=== PATIENT | male | born 1950 | race Caucasian/White ===

== ENCOUNTER 2023-12-12 12:21 | Outpatient (AMB) | payer OTHER, SELFPAY ==
[2023-12-12 12:24] VITALS: BP 160/90; PULSE 83; TEMP 36.6; O2SAT 98; BMI 47.3
--- NOTE | 2023-12-12 12:24 | AM.OFFWIN_ITS ---
Intake Vital Signs 12/12/23 12:24 Height 6 ft 6 in Weight 409 lb BMI 47.3 BP 160/90 H Blood Pressure Location Lt brachial Position Sitting Pulse 83 Pulse Source Pulse Oximeter Temp 97.8 F Temp Source Temporal Artery Scan Pulse Oximetry (%) 98 Oxygen Delivery Method Room Air Intake Visit Reasons: CONTACT [employer] LT side pain due to fall Intake Note: pt is here today for lft side due to fall started tuesday Patient Tobacco Use Status: Never used Tobacco Allergies No Known Allergies Allergy (Verified 12/12/23 12:28) Do you need a note to return to daycare/school/sports/work: No HPI HPI Comments History of Present Illness Details Patient presents to the walk-in today for sick visit Fell 2 days ago from standing, landed on his left side. Complaining of pain over the left ribs worse with deep inspiration Denies syncope, dizziness, weakness. 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 He is concerned for fractured ribs and would like an x-ray Denies shortness of breath but does report pain increased with deep inspiration Able to use his CPAP at home since the fall without difficulty Has an incentive spirometer at home when she has also been using Apply lidocaine patch with minimal improvement Denies current use of anticoagulation PFSH Social History Patient Tobacco Use Status: Never used Tobacco Review of Systems Const All systems reviewed & are unremarkable except as noted in HPI and below Physical Exam Vital Signs: Last Vital Signs Temp 97.8 F 12/12/23 12:24 Pulse 83 12/12/23 12:24 BP 160/90 H 12/12/23 12:24 Pulse Ox 98 12/12/23 12:24 Oxygen Delivery Method Room Air 12/12/23 12:24 BMI result Body Mass Index 47.3 General: awake, alert, oriented. Answers questions appropriately. Fully engaged in examination. Skin: warm, dry, intact HEENT: Normocephalic. Hearing intact. Cardiac: External chest normal in appearance. RRR Respiratory: No cough, audible wheezing or stridor. Lung sounds clear to auscultation bilaterally Abdomen: without gross distension. Soft, nontender. No guarding MS: Tenderness to palpation left lateral chest wall, below the axilla, without bruising, swelling or obvious deformity Full range of motion right upper extremity without pain increase Neurological: Oriented to person, place, time and situation. Thought process intact. No gait abnormalities appreciated. Psychiatric: Appropriate mood and affect. Good judgment and insight. Results Reviewed Results Reviewed: X-ray left ribs and chest ordered and independently reviewed: Fracture left 7th rib, no pneumothorax Assessment & Plan Assessment & Plan (1) Rib pain on left side: Code(s): R07.81 - Pleurodynia Plan X-ray ordered independently reviewed, fracture left 7th rib, no pneumothorax Continue to use incentive spirometer at home Ibuprofen 600 mg 4 times daily as needed. Patient declined prescription, will use [id number]. Follow-up with PCP or return here for any new or worsening symptoms Go to the ER for shortness of breath, chest pain, syncope, weakness, dizziness Orders: Orders XR ribs LT min 3V w CXR1V Today R07.81 - Pleurodynia Coding Level of Care Code New Pt Level 4 (34376) Diagnoses Rib pain on left side R07.81
== END 2023-12-12 14:53 | disposition home or self-care (01) ==
PROVIDERS: PCP Internal Medicine; Visit Provider Registered Nurse Emergency
DX: R07.81 Pleurodynia (principal)
CPT/HCPCS: 99204

== ENCOUNTER 2023-12-12 13:21 | Outpatient (REF) | payer OTHER, SELFPAY ==
--- NOTE | ~2023-12-12 | XR_ITS ---
EXAMINATION: XR RIBS, LEFT CLINICAL INFORMATION: Pleurodynia COMPARISON: None available. TECHNIQUE: Single view chest with 7 views of the left ribs were obtained. FINDINGS: Heart size upper limits of normal. The lungs are clear without effusions infiltrates or lung masses. Old healed fractures are noted on the right. There are new acute minimally displaced fractures involving the 4th , the 5th , and the 6th anterolateral ribs. No pneumothorax or pleural effusions. Some left basilar atelectasis is seen. XR/XR ribs LT min 3V w CXR1V IMPRESSION: Acute left-sided rib fractures as described above.
== END 2023-12-12 13:22 | disposition home or self-care (01) ==
LOC: HO.HMGCX 13:21
PROVIDERS: Visit Provider Registered Nurse Emergency
DX: R07.81 Pleurodynia (principal)
CPT/HCPCS: 71101

== ENCOUNTER 2023-12-20 13:11 | Outpatient (AMB) | payer OTHER, SELFPAY ==
[2023-12-20 13:05] VITALS: BP 130/90; PULSE 68; TEMP 36.2; O2SAT 98; BMI 48.0
--- NOTE | 2023-12-20 13:05 | MHC.OFFWIV ---
Intake Vital Signs 12/20/23 13:05 Height 6 ft 6 in Weight 415 lb BMI 48.0 BP 130/90 H Blood Pressure Location Lt brachial Position Sitting Pulse 68 Pulse Source Pulse Oximeter Temp 97.1 F Temp Source Temporal Artery Scan Pulse Oximetry (%) 98 Oxygen Delivery Method Room Air Intake Visit Reasons: EP Swollen Ankles Intake Note: pt is here today for swollen ankles started 12/12/23 Patient Tobacco Use Status: Never used Tobacco Allergies No Known Allergies Allergy (Verified 12/20/23 13:46) Medication List - Last Reconciled 12/20/23 by Dario Wheeler MD hydrochlorothiazide 12.5 mg PO DAILY losartan 50 mg PO DAILY Do you need a note to return to daycare/school/sports/work: No HPI EP Swollen Ankles HPI Details 73 yr old male presents to the office for a sick visit. Pt was seen a few weeks ago after a fall. He had fractures in the left 4,5,6 ribs. He now reports swelling and pain in both his legs. His shoes have gotten tighter. He has Sleep apnea and sleeps propped up. No recent sx of cough. No difficulty urinating. [facility] Medical History (Updated 12/20/23 @ 14:06 by Dario Wheeler MD) Atrial fibrillation Social History Patient Tobacco Use Status: Never used Tobacco Physical Exam Vital Signs: Last Vital Signs Temp 97.1 F 12/20/23 13:05 Pulse 68 12/20/23 13:05 BP 130/90 H 12/20/23 13:05 Pulse Ox 98 12/20/23 13:05 Oxygen Delivery Method Room Air 12/20/23 13:05 BMI result Body Mass Index 48.0 Const General: cooperative and healthy appearing Nutritional Appearance: well nourished Orientation/consciousness: patient oriented x3 Limitations: no limitations HEENT Head: Yes normal to inspection Eyes General: appearance normal, both eyes and all related structures Neck Neck: Yes normal visual inspection Chest Chest palpation & inspection: normal palpation of entire chest wall Resp Effort & Inspection: normal respiratory effort Cardio Other: S1S2 irregular Neuro General: patient oriented x3 Extrem Other: pitting edema upto the knees bilaterally. Office Procedures EKG Details: Atrial Fibrillation, HR at 94/mt [id number], Complete Assessment & Plan Assessment & Plan (1) Atrial fibrillation: Code(s): I48.91 - Unspecified atrial fibrillation Plan: New onset atrial fibrillation. Transitioning between PCP's. Does not know his renal functions. Urinalysis done today was negative. Clinically he appears to be in failure. ER notified of patient arrival.Patient was transferred to the ER via ambulance. Orders: Orders AMB EKG-In Office Today R07.9 - Chest pain, unspecified Coding Level of Care Code Est Pt Level 4 (12567) Diagnoses Atrial fibrillation I48.91 CPT Codes EKG - CPT: 20881-[id number], Complete ([id number])
== END 2023-12-20 14:49 | disposition home or self-care (01) ==
PROVIDERS: PCP Internal Medicine; Visit Provider Internal Medicine
DX: I48.91 Unspecified atrial fibrillation (principal)
CPT/HCPCS: 93000; 99214